=== PATIENT | female | born 1955 | race Caucasian/White ===

== ENCOUNTER 2020-11-17 09:57 | Day surgery (SDC) | payer MEDICARE, MEDICAID ==
[~2020-11-17] VITALS: Ht 152.4 cm; Wt 61.6 kg
[2020-11-17 11:08] VITALS: BP 125/65
[2020-11-17] MEDS ORDERED: NALO4SPR NAS (11:25)
[2020-11-17] MEDS ORDERED: SERT100T PO (11:25)
[2020-11-17] MEDS ORDERED: LOSA50TA14 PO (11:25)
[2020-11-17] MEDS ORDERED: PRED20TA PO (11:25)
[2020-11-17] MEDS ORDERED: QUET200T4 PO (11:25)
[2020-11-17] MEDS ORDERED: MONT10TA17 PO (11:25)
[2020-11-17] MEDS ORDERED: FAMO-79 PO (11:25)
[2020-11-17] MEDS ORDERED: BUDE10.22 INH (11:25)
[2020-11-17] MEDS ORDERED: IPRA4AER BC (11:25)
[2020-11-17 11:27] LABS: BASOPHILS % (AUTO) 1 % (0-1); EOSINOPHILS % (AUTO) 0 % (1-7); LYMPHOCYTES % (AUTO) 8 % (22-44); MEAN CORPUSCULAR HEMOGLOBIN 29.5 pg (27.0-34.8); MEAN PLATELET VOLUME 9.1 fL (7.4-10.4); MONOCYTES % (AUTO) 3 % (2-9); NEUTROPHILS % (AUTO) 88 % (42-75); PLATELET COUNT 200 x10^3/uL (130-400); RED BLOOD COUNT 3.78 x10^6/uL (3.82-5.3); RED CELL DISTRIBUTION WIDTH 14.4 % (9.6-15.2)
[2020-11-17 11:29] LABS: MD NO
[2020-11-17 11:39] LABS: CALCIUM 9.1 mg/dL (8.5-10.1); CREATININE 0.62 mg/dL (0.55-1.02)
[2020-11-17 11:54] LABS: ANION GAP 3 mmol/L (5-15); CHLORIDE 108 mmol/L (98-107)
[2020-11-17] MEDS ORDERED: BIVALIRUDIN 250 MG ONE (12:56)
[2020-11-17] MEDS ORDERED: VERAPAMIL 2.5 MG/ML, 2ML ONE (12:56)
[2020-11-17] MEDS ORDERED: LIDOCAINE-MPF 1%, 5ML ONE (12:56)
[2020-11-17] MEDS ORDERED: MIDAZOLAM 1 MG/ML, 5ML ONE (12:56)
[2020-11-17] MEDS ORDERED: HEPARIN 1,000 UNITS/ML, 10ML ONE (12:56)
[2020-11-17] MEDS ORDERED: FENTANYL PF 100 MCG/2ML ONE (12:56)
[2020-11-17] MEDS ORDERED: TICAGRELOR 90 MG TABLET ONE (12:56)
[2020-11-17] MEDS ORDERED: SODIUM CHLORIDE 0.9% 1,000 ML IV SCH (14:00)
[2020-11-17] MEDS ORDERED: ALBUTEROL SULFATE 2.5MG/0.5ML NPPB ONE (14:30)
== END 2020-11-17 15:45 | disposition home or self-care (01) ==
LOC: CACL 09:57
PROVIDERS: ATTEND Internal Medicine Cardiovascular Disease
DX: R07.9 Chest pain, unspecified (principal); I10 Essential (primary) hypertension; E78.5 Hyperlipidemia, unspecified; I25.2 Old myocardial infarction; I42.9 Cardiomyopathy, unspecified; J44.9 Chronic obstructive pulmonary disease, unspecified; Z79.82 Long term (current) use of aspirin; Z79.899 Other long term (current) drug therapy; Z87.891 Personal history of nicotine dependence; Z99.81 Dependence on supplemental oxygen
CPT/HCPCS: 36415; 80048; 85025; 93458; 94640; 99156; C1769; C1894; J1644; J2250; J3010; Q9967; 76937; J0583